=== PATIENT | male | born 1950 | race Caucasian/White ===

== ENCOUNTER 2016-06-28 17:10 | Emergency (ER) ==
[2016-06-28] MEDS ORDERED: VERSED ONE ×2 (17:13→20:35)
--- NOTE | 2016-06-28 17:15 | ED.PDOC ---
General ED Provider: Dr. LILLY HOOVER JR Chief Complaint: Altered Mental Status Stated Complaint: EWM FOUND UNRESPONSIVE BAGGED TO 80 % SINUS RHYTHM PER EMS PT LEFT BY SEMICONDUCTOR LAB TECHNICIAN SLUMPED(BENT OVER) IN CHAIR POORLY RESPONSIVE(BARELY SPEAKING) , FOUND ON RETURN UNKOWN TIME LATER ON FLOOR IN ANOTHER ROOM UNRESPONSIVE Time Seen by Physician: 17:10 Mode of Arrival: Ambulance Information Source: EMT Exam Limitations: Clinical condition Nursing and Triage Documentation Reviewed and Agree: No (NOT AVAIL) Review of Systems - Review Of Systems Constitutional: Reports: Other Eyes: Reports: Other Ears, Nose, Mouth, Throat: Reports: No symptoms Respiratory: Reports: Other Cardiac: Reports: Other GI: Reports: Other : Reports: Other Musculoskeletal: Reports: Other Neurological: Reports: Cognitive dysfunction (UNRESPONSIVE TO INTUBATION) Endocrine: Reports: Other Hematologic/Lymphatic: Reports: Other All Other Systems: Other Past Medical History - Past Medical History Endocrine: Reports: None. Denies: DM 1 Cardiovascular: Reports: SC. 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), Schizophrenia, PTSD, Other (paranoia) Musculoskeletal: Reports: Unknown Cancer: Reports: Other (melanomas in ) Other Pertinent Past Medical History: similar spells in past per daughter - Surgical History General Surgical History: Reports: Other (colonoscopt recently to get results of biopsyin a few days) - Family History Family History: Reports: Unknown - Social History Smoking Status: Current every day smoker (2ppd o2 taken away 2 years ago when burned through tube) Physical Exam - Physical Exam Appearance: Ill-appearing Eyes: SKYLAR (PUPILS SMALL REACTIVE EYES DRY) Neck: Supple Respiratory: Airway patent, Breath sounds diminished Cardiovascular: RRR, Abnormal pulses (THREADY) Skin: Warm, Dry Neurological: Unresponsive Interpretation - EKG Interpretation Time of EKG #1: 17:50 Rate: Normal Rhythm: Sinus Danby: Left ST Segment: Other (RBBB) Procedures - Intubation Indication: Present: Respiratory Insufficiency Time of Intubation: 17:10 Type of Tube Used: Endotracheal Tube Size: 7.5 Cricoid Pressure Used: No Tube Goldstein Used: No Number of Attempts: 1 Suction Used: Yes Glidescope Used: No CO2 Detector Used: Yes Lung Sounds Equal Bilaterally: Yes Intubation Complications: Present: O2 saturation decreased (50% IMPROVED WITH ET SUCTION) Tube Placement Verified by X-ray: Yes (TO RIGHT SIDE WITHDRAWN 2CM REPEAT- ABOVE CARINIA) Re-Evaluation - Re-Evaluation Time of Re-Evaluation: 19:07 Status: Unchanged (daughter here) Critical Care Note - Critical Care Note Total Time (mins): 60 Course - Course Hematology/Chemistry: 06/28/16 17:30 06/28/16 17:30 Orders, Labs, Meds: Lab Review 06/28/16 06/28/16 06/28/16 17:17 17:30 17:37 WBC 20.18 H RBC 4.23 L Hgb 13.7 L Hct 42.2 MCV 99.8 H MCH 32.4 H MCHC 32.5 RDW Coeff of Tamiko 14.9 H Plt Count 226 Immature Gran % (Auto) 0.3 Neut % (Auto) 92.7 Lymph % (Auto) 2.5 L Lamar % (Auto) 4.3 Eos % (Auto) 0.0 Baso % (Auto) 0.2 Immature Gran # (Auto) 0.1 Neut # 18.7 H Lymph # 0.5 L Lamar # 0.9 Eos # 0.0 Baso # 0.1 D-Dimer 657.14 H Puncture Site Rrad Lrad O2 Saturation 97.0 87.0 L ABG pH 7.246 L* 7.332 L ABG pCO2 70.3 H 57.1 H ABG pO2 106.0 H 58.0 L* ABG HCO3 30.5 H 30.2 H ABG Total CO2 33 H 32 H ABG Base Excess 3 H 4 H Roderick Test + + O2 Delivery Device Vent Vent Oxygen Liter Flow 15.00 15.00 FiO2 % 50.0 50.0 Sodium 139 Potassium 4.3 Chloride 98 Carbon Dioxide 32 H Anion Gap 13.3 BUN 9 Creatinine 0.87 Estimated GFR (MDRD) 88.00 BUN/Creatinine Ratio 10.34 Glucose 136 H Calcium 8.4 Total Bilirubin 1.10 AST 16 ALT 10 L Alkaline Phosphatase 81 Total Creatine Kinase 36 Troponin I 0.0820 B-Natriuretic Peptide 118 H Total Protein 6.7 Albumin 3.7 Globulin 3.0 Albumin/Globulin Ratio 1.23 Orders Category Date Time Status ABG DRAW REQUEST Stat CARDIO 06/28/16 17:18 Completed ABG DRAW REQUEST Stat CARDIO 06/28/16 17:37 Completed EKG-(ED ONLY) Stat CARDIO 06/28/16 17:17 Completed EKG-(ED ONLY) Stat CARDIO 06/28/16 18:33 Completed ED APPLY O2 .ONCE EMERGENCY 06/28/16 17:17 Active ED ASSISTANT SIGNAL MAINTAINER APPLIED .ONCE EMERGENCY 06/28/16 17:17 Active ED IV/MEDIPORT/POWERPORT .ONCE EMERGENCY 06/28/16 17:17 Active ABG Stat LAB 06/28/16 17:17 Completed ABG Stat LAB 06/28/16 17:37 Completed B-TYPE NATRIURETIC PEPTIDE Stat LAB 06/28/16 17:30 Completed CBC W/ AUTO DIFF Stat LAB 06/28/16 17:30 Completed COMPREHENSIVE METABOLIC PANEL Stat LAB 06/28/16 17:30 Completed CREATINE KINASE Stat LAB 06/28/16 17:30 Completed D-DIMER Stat LAB 06/28/16 17:30 Completed TROPONIN I Stat LAB 06/28/16 17:30 Completed 0.9 % Sodium Chloride [Saline Flush] MEDS 06/28/16 17:17 Ordered 1 syr IVF PRN PRN Midazolam HCl Inj [Versed] MEDS 06/28/16 17:25 Discontinued 2.5 mg IVP ONCE STA Sodium Chloride 0.9% [Sodium Chloride] 1,000 ml MEDS 06/28/16 17:17 Active IV 100 mls/hr Vecuronium [place] [Norcuron] MEDS 06/28/16 18:56 Discontinued 2 mg IVP ONCE STA Vecuronium [place] [Norcuron] MEDS 06/28/16 17:25 Discontinued 8 mg IVP ONCE STA CHEST, 1V AP ONLY Stat RADS 06/28/16 17:[address] HEAD W/O CONTRAST Stat RADS 06/28/16 17:37 Completed Medications Generic Name Dose Route Start Last Admin Trade Name Freq PRN Reason Stop Dose Admin Sodium Chloride 1,000 mls @ 100 mls/hr 06/28/16 17:17 06/28/16 17:28 Sodium Chloride IV 06/29/16 03:16 100 mls/hr .Q10H STA Administration Sodium Chloride 1 syr 06/28/16 17:17 Saline Flush IVF PRN PRN To flush IV Discontinued Medications Generic Name Dose Route Start Last Admin Trade Name Freq PRN Reason Stop Dose Admin Midazolam HCl 2.5 mg 06/28/16 17:25 06/28/16 17:13 Versed IVP 06/28/16 17:26 2.5 mg ONCE STA Administration Vecuronium [place] 8 mg 06/28/16 17:25 06/28/16 17:17 Norcuron IVP 06/28/16 17:26 8 mg ONCE STA Administration Vecuronium [place] 2 mg 06/28/16 18:56 06/28/16 18:58 Norcuron IVP 06/28/16 18:57 2 mg ONCE STA Administration Vital Signs: Temp Pulse Resp BP Pulse Ox 06/28/16 17:45 22 06/28/16 17:20 18 06/28/16 17:10 99.2 F 118 H 20 146/72 H 100 Departure - Departure Time of Disposition: 19:50 Disposition: TSF SHORT-TRM HOSP Discharge Problem: Respiratory failure requiring intubation Condition: Stable Pt referred to PMD for follow-up: No Additional Instructions: spiritism accepted by dr DONALDSON - ICU Allergies/Adverse Reactions: Allergies Unobtainable Allergy (Verified 06/28/16 17:49) pt unresponsive Home Medications: Ambulatory Orders 1 [Unobtainable] 06/28/16
[2016-06-28] MEDS ORDERED: ZOFRAN 4 MG/2 ML IVP STA (17:17)
[2016-06-28] MEDS ORDERED: SODIUM CHLORIDE 1,000 ML IV STA (17:17)
[2016-06-28] MEDS ORDERED: NORCURON IVP STA ×4 (17:25→20:25)
[2016-06-28] MEDS ORDERED: VERSED IVP STA (17:25)
[2016-06-28 17:31] VITALS: BP 146/72; TEMP 99.2
[2016-06-28 17:38] LABS: BASOPHILS # (AUTO) 0.1 K/uL (0-0.2); BASOPHILS % (AUTO) 0.2 % (0.0-3.0); HEMATOCRIT 42.2 % (42.0-52.0); HEMOGLOBIN 13.7 g/dl (14.0-18.0); IMMATURE GRANULOCYTE % (AUTO) 0.3 % (0.0-5.0); LYMPHOCYTES # (AUTO) 0.5 K/uL (0.60-3.4); LYMPHOCYTES % (AUTO) 2.5 (10.0-50.0); MEAN CORPUSCULAR HEMOGLOBIN 32.4 pg (27.0-31.0); MEAN CORPUSCULAR HGB CONC 32.5 (31.8-35.4); MEAN CORPUSCULAR VOLUME 99.8 fl (80.0-94.0); MONOCYTES # (AUTO) 0.9 K/uL (0.4-2.0); MONOCYTES % (AUTO) 4.3 (0-10); NEUTROPHILS # (AUTO) 18.7 K/ul (2.0-6.9); NEUTROPHILS % (AUTO) 92.7; PLATELET COUNT 226 10^3/uL (140-440); RED BLOOD COUNT 4.23 10^6/ul (4.70-6.10); WHITE BLOOD COUNT 20.18 K/ul (4.2-10.2)
[2016-06-28 18:04] LABS: ALBUMIN 3.7 g/dL (3.4-5.0); ALBUMIN/GLOBULIN RATIO 1.23; ANION GAP 13.3; BILIRUBIN,TOTAL 1.1 mg/dL (0.00-1.20); BUN/CREATININE RATIO 10.34; CALCIUM 8.4 mg/dL (8.2-10.2); CREATININE 0.87 mg/dL (0.60-1.10); POTASSIUM 4.3 mmol/L (3.5-5.1); TOTAL PROTEIN 6.7 g/dL (5.8-8.1); TROPONIN I 0.082 ng/ml (0.0000-0.4000)
--- NOTE | 2016-06-28 18:30 | CT ---
EXAM: CT Head HISTORY: Unresponsive COMPARISON: None TECHNIQUE: CT head performed without contrast FINDINGS: Areas of streak artifact somewhat limit evaluation of the frontal regions. There is no mas s effect, midline shift, or intracranial hemmorhage identified. Andino white differentiation is prese rved. There is no extra-axial collection. The ventricles, sulci, and basal cisterns are patent and symmetric. There is no depressed calvarial fracture. The mastoid air cells are clear. Mild mucosa l thickening ethmoid air cells. IMPRESSION: No acute intracranial abnormality identified.
[2016-06-28 18:50] LABS: ABG PH 7.246 (7.35-7.45)
[2016-06-28 18:51] LABS: ABG BASE EXCESS 3 (-2.0-2.0); ABG HCO3 30.5 (22.0-26.0); ABG PCO2 70.3 mmHg (35-45); ABG TCO2 33 (22.0-28.0)
[2016-06-28 18:59] VITALS: BMI 22.8
[2016-06-28 19:08] LABS: ABG PCO2 57.1 mmHg (35-45); ABG PH 7.332 (7.35-7.45)
[2016-06-28 19:10] LABS: ABG BASE EXCESS 4 (-2.0-2.0); ABG HCO3 30.2 (22.0-26.0); ABG TCO2 32 (22.0-28.0)
--- NOTE | 2016-06-28 22:21 | DI ---
EXAM: Chest one view HISTORY: Tube placement, chest pain COMPARISON: None TECHNIQUE: Single view of the chest was performed FINDINGS: Endotracheal tube terminates 5 cm above the hai. There is right basilar consolidation . Mild left basilar atelectasis and/or consolidation. Small right pleural effusion. No visible pneu mothorax. Heart normal in size. Mediastinal contour normal. IMPRESSION: 1. Right basilar consolidation likely represents pneumonia. Small right pleural effusion. Mild left basilar atelectasis and/or pneumonia. 2. Endotracheal tube terminating 5 cm above the hai.
== END 2016-06-28 20:30 | disposition short-term general hospital (02) ==
LOC: ED 17:10
DX: J96.00 Acute respiratory failure, unspecified whether with hypoxia or hypercapnia (principal); I25.2 Old myocardial infarction; J44.9 Chronic obstructive pulmonary disease, unspecified; Z86.73 Personal history of transient ischemic attack (TIA), and cerebral infarction without residual deficits; F17.210 Nicotine dependence, cigarettes, uncomplicated
CPT/HCPCS: 36415; 80053; 82550; 82803; 83880; 84484; 85025; 85379; 93005; 93010; 96361; 96374; 96375; 96376; 99291

== ENCOUNTER 2016-06-28 18:27 | Outpatient (CLI) ==
[2016-06-28 18:59] VITALS: BMI 22.8
== END 2016-06-28 18:28 ==
LOC: AMBL 18:27
PROVIDERS: ATTEND Emergency Medicine
DX: J96.00 Acute respiratory failure, unspecified whether with hypoxia or hypercapnia (principal)

== ENCOUNTER 2016-11-17 13:54 | Emergency (ER) ==
[2016-11-17 14:01] VITALS: BP 147/85; TEMP 98.1; BMI 29.0
--- NOTE | 2016-11-17 16:24 | ED.PDOC ---
General ED Provider: Dr. 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 [ End ]98.1 83 20 94% 147/85 03/29. [ End ]fall--pain left shoulder/ hip. [ End ]states had back surg-3 weeks ago. [ End ]blind in right eye 30% vision in left eye tender over clavicle but nonfocal slurred speech appears to be due tro lack of teeth follwo with [facility] Time Seen by Physician: 16:25 Mode of Arrival: Wheelchair Information Source: Patient Exam Limitations: No limitations Primary Care Provider: BONITA MD Nursing and Triage Documentation Reviewed and Agree: No Review of Systems - Review Of Systems Constitutional: Reports: No symptoms Eyes: Reports: No symptoms Ears, Nose, Mouth, Throat: Reports: No symptoms Respiratory: Reports: No symptoms Cardiac: Reports: Other (eft shoulder pain) GI: Reports: No symptoms : Reports: No symptoms Musculoskeletal: Reports: Joint pain, Muscle pain, Other (pauin lef thip superficial left shoudler struck right forehead on floor) Skin: Reports: No symptoms Neurological: Reports: No symptoms Endocrine: Reports: No symptoms Hematologic/Lymphatic: Reports: No symptoms All Other Systems: Other Past Medical History - Past Medical History Endocrine: Reports: None. Denies: DM 1 Cardiovascular: Reports: MD. 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(11/17 denies cva on ros)) , Schizophrenia, PTSD, Other (paranoia) Musculoskeletal: Reports: Unknown Cancer: Reports: Other (melanomas in ) Other Pertinent Past Medical History: similar spells in past per daughter - Surgical History General Surgical History: Reports: Cholecystectomy, Other (colonoscopt recently to get results of biopsyin a few days/facial trauma with surg) - Family History Family History: Reports: Unknown - Social History Smoking Status: Current every day smoker, Light tobacco smoker Hx Substance Use: No Alcohol Screening: None Physical Exam - Physical Exam Appearance: Well-appearing, Thin Pain Distress: Moderate ENT: Ears normal, Nose normal, Oropharynx normal Neck: Supple Respiratory: Airway patent, Breath sounds clear, Breath sounds equal, Respirations nonlabored Cardiovascular: RRR, Pulses normal, No rub, No murmur GI/: Soft, Nontender, No masses, Bowel sounds normal, No Organomegaly Musculoskeletal: Limited ROM Skin: Warm, Dry (left shoulder scattered ecchymoses) Neurological: Sensation intact, Motor intact, Reflexes intact, Alert, Oriented ( slow speech) Psychiatric: Affect appropriate, Mood appropriate Critical Care Note - Critical Care Note Total Time (mins): 0 Course - Course Orders, Labs, Meds: Orders Category Date Time Status CLAVICLE, LEFT 2 VIEWS Stat RADS 11/17/16 16:[address] HEAD W/O CONTRAST Stat RADS 11/17/16 16:19 Completed HIP, LEFT 2 VIEWS Stat RADS 11/17/16 16:19 Completed SHOULDER, LEFT MIN 2V Stat RADS 11/17/16 16:19 Completed Vital Signs: Temp Pulse Resp BP Pulse Ox 11/17/16 13:54 98.1 F 83 20 147/85 H 94 L Departure - Departure Time of Disposition: 17:48 Disposition: HOME SELF-CARE Discharge Problem: Clavicle fracture Qualifiers: Encounter type: initial encounter Clavicle location: lateral end Fracture type : closed Fracture alignment: nondisplaced Laterality: left Qualifier Code: ( S42.035A) Nondisplaced fracture of lateral end of left clavicle, initial encounter for closed fracture Instructions: Clavicle Fracture (ED) Condition: Fair Pt referred to PMD for follow-up: Yes Additional Instructions: CALL YOUR DOCTOR FOR ORTHOPEDIC REFERRAL YOUR CLAVICLE(COLLAR BONE ) IF BROKEN OVER THE SHOULDER WEAR SLING TO KEEP BONE STABLE MAY USE NORCO FOR THE PAIN RETURN IF WORSENING Prescriptions: Hydrocodone Bit/Acetaminophen [[place] 5-325] 1 - 2 tab PO Q6HR PRN #20 tablet PRN Reason: pain Allergies/Adverse Reactions: Allergies No Known Allergies Allergy (Unverified 11/17/16 14:04) Home Medications: Ambulatory Orders Hydrocodone Bit/Acetaminophen [[place] 5-325] 1 - 2 tab PO Q6HR PRN #20 tablet 05/ 31/17
--- NOTE | 2016-11-17 16:58 | DI ---
EXAM: Two views of the left clavicle HISTORY: Fall. COMPARISON: Left shoulder x-rays same day FINDINGS: There is minimally displaced fracture of the distal aspect of the left clavicle. This weaver s not extend into the acromioclavicular joint space. There is no lytic or blastic lesion identified . The soft tissues are unremarkable. IMPRESSION: Minimally displaced fracture of the distal aspect of the left clavicle without extensio n into the joint space.
--- NOTE | 2016-11-17 16:59 | DI ---
EXAM: Two views of the left shoulder HISTORY: Fall. COMPARISON: Same day left clavicle x-ray FINDINGS: The there is a distal left clavicular fracture which is minimally displaced. There is no extension into the acromioclavicular joint. The proximal left humerus is normal in appearance witho ut fracture. There is no dislocation of the glenohumeral joint. The soft tissues are unremarkable. The adjacent osseous structures of the ribs are normal. IMPRESSION: 1. Minimally displaced fracture of the distal aspect of the left clavicle. 2. No additional abnormality or fracture of the left shoulder.
--- NOTE | 2016-11-17 17:06 | CT ---
EXAM: CT head without contrast HISTORY: Fall with trauma to head COMPARISON: CT head 06/28/2016 and 03/08/2011 TECHNIQUE: Serial axial images of the brain were obtained from the skull base to the vertex without IV contrast. FINDINGS: The ventricles, cisterns and sulci demonstrate mild generalized volume loss. The gayle-wh ite matter junction is maintained. There is scattered low attenuation in the periventricular white matter.No midline shift or mass is identified. There is no abnormal intra or extra-axial fluid frances ection. The paranasal sinuses and mastoid air cells are clear. The osseous calvarium is intact. IMPRESSION: 1. No acute intracranial abnormality or hemorrhage. If further evaluation is clinically indicated, MRI may be obtained. 2. Mild generalized volume loss and microangiopathy
--- NOTE | 2016-11-17 17:18 | DI ---
EXAM: Left hip two-view HISTORY: Fall, struck head COMPARISON: None FINDINGS: Bones are demineralized. Mild osteoarthritis left hip with joint space narrowing osteophy te formation. No fracture or dislocation. No focal soft tissue abnormality. Atherosclerotic vascula r calcification IMPERSSION: 1. No fracture or dislocation. 2. Mild osteoarthritis left hip. 3. Bones appear demineralized.
== END 2016-11-17 18:10 | disposition home or self-care (01) ==
LOC: ED 13:54
DX: S42.035A Nondisplaced fracture of lateral end of left clavicle, initial encounter for closed fracture (principal); I69.398 Other sequelae of cerebral infarction; H54.42 Blindness, left eye, normal vision right eye; F17.200 Nicotine dependence, unspecified, uncomplicated; W01.0XXA Fall on same level from slipping, tripping and stumbling without subsequent striking against object, initial encounter
CPT/HCPCS: 99283

== ENCOUNTER 2017-08-06 19:45 | Outpatient (CLI) | END 2017-08-06 19:46 | disposition short-term general hospital (02) | LOC: AMBL 19:45 | PROVIDERS: ATTEND Internal Medicine Geriatric Medicine | DX: R53.1 Weakness (principal); R19.7 Diarrhea, unspecified; R11.0 Nausea ==